=== PATIENT | female | born 1965 | race Caucasian/White ===

== ENCOUNTER 2016-06-25 14:23 | Emergency (ER) | payer MEDICAID ==
--- NOTE | 2016-06-25 16:34 | EDPHY ---
H & P Time Seen by Provider: 06/25/16 16:30 HPI/ROS: CHIEF COMPLAINT: RLQ pain. HISTORY OF PRESENT ILLNESS: The patient is a 51-year-old female with a history of chronic pain and kidney stones who presents with severe burning RLQ pain for 2 hours. The pain does not radiate. She denies vomiting, nausea, fever, dysuria , or other complaints. She reports that the pain is more severe than her usual chronic pain but is unsure if it is similar to past kidney stones. She was unable to walk earlier due to pain. REVIEW OF SYSTEMS: A complete 10-point review of systems was performed and is negative except for those items mentioned in the HPI. Past Medical/Surgical History: Kidney stones, depression, chronic pain, endometriosis, sciatica, pancreatitis, bursitis. Social History: Nonsmoker. Smoking Status: Never smoked Physical Exam: General Appearance: Alert, no distress Eyes: Pupils equal and round, no conjunctival pallor or injection ENT, Mouth: Mucous membranes moist Neck: Normal inspection Respiratory: Lungs are clear to auscultation Cardiovascular: Regular rate and rhythm Gastrointestinal: RUQ and right periumbilical tenderness. Abdomen is soft. Neurological: A&O, nonfocal, normal gait Skin: Warm and dry, no rash Extremities: Nontender, no pedal edema Psychiatric: Mood and affect normal Constitutional: Initial Vital Signs Temperature (C) 36.4 C 06/25/16 14:35 Heart Rate 69 06/25/16 14:35 Respiratory Rate 18 06/25/16 14:35 Blood Pressure 102/74 06/25/16 14:35 O2 Sat (%) 97 06/25/16 14:35 O2 Delivery Mode Room Air Allergies/Adverse Reactions: iodine [Iodine] Allergy (Verified 06/25/16 14:34) promethazine HCl [From Phenergan] Allergy (Verified 06/25/16 14:34) Home Medications: Medication Instructions Recorded Xanax 06/25/16 Medical Decision Making - Diagnostics Imaging: Study: CT of the abdomen/pelvis. Indication: RLQ pain. Results: Right renal stones, with no obstructive uropathy. The study was read by the radiologist, Dr. Linda. I viewed the images myself on the PACS system. ED Course/Re-evaluation: An IV was established and basic labs ordered including UA. 1L IV saline administered for hydration, 6mg IV Morphine for pain, and 4mg IV Zofran for nausea. Abdomen/pelvis CT ordered. CT scan results discussed with patient. She is feeling better. Etiology of right lower quadrant pain is unclear given that there is no ureteral calculus and a normal appendix is visualized. Toradol 30 mg IV given. Abdominal exam is unchanged on discharge. I feel that she is safe and stable for discharge. Abdominal pain precautions given. Differential Diagnosis: Differential diagnosis includes though it is not limited to appendicitis, cholecystitis, diverticulitis, pyelonephritis, bowel perforation, small bowel obstruction. - Data Points Laboratory Results: Laboratory Results 06/25/16 16:23 06/25/16 16:23 Medications Given: Discontinued Medications Acetaminophen/Hydrocodone Bitart ([place] 5/325mg Prepack#6) 1 btl TAKEHOME EDNOW ONE Stop: 06/25/16 19:07 Last Admin: 06/25/16 19:20 Dose: 1 btl Sodium Chloride (Ns) 1,000 mls @ 0 mls/hr IV ONCE ONE PRN Reason: Wide Open Stop: 06/25/16 16:38 Last Admin: 06/25/16 16:57 Dose: 1,000 mls Morphine Sulfate (Morphine) 6 mg IVP EDNOW ONE Stop: 06/25/16 16:38 Last Admin: 06/25/16 16:57 Dose: 6 mg Ondansetron HCl (Zofran Odt) 4 mg PO EDNOW ONE Stop: 06/25/16 16:38 Last Admin: 06/25/16 16:57 Dose: 4 mg Ondansetron HCl (Zofran Odt 4 Mg Prepack#2) 1 btl TAKEHOME EDNOW ONE Stop: 06/25/16 19:07 Last Admin: 06/25/16 19:20 Dose: 1 btl Departure - Departure Disposition: Home, Routine, Self-Care Clinical Impression: Abdominal pain Condition: Good Instructions: Acute Abdominal Pain (ED), Hydrocodone/Acetaminophen (By mouth), Ondansetron (By mouth) Additional Instructions: Follow up with your primary care provider this week for reevaluation. You have been provided the telephone number of a primary care provider if you need one. Return to the Emergency Department in 24 hours if your symptoms have not gone away or are worse in any way. Referrals: Lavon Chowdary DO [Doctor of Osteopathy] - As per Instructions (On-call PCP.) Report Scribed for: Flores Hart Report Scribed by: Marc Chew Date of Report: 06/25/16 Time of Report: 16:34 Physician Review and Approval Statement: 06/25/16 16:34 Portions of this note were transcribed by a territory sales manager medical. I personally performed a history, physical exam, medical decision making, and confirmed accuracy of information the transcribed note.
[2016-06-25] MEDS ORDERED: NS 1,000 ML IV ONE (16:37)
[2016-06-25] MEDS ORDERED: ONDANSETRON DISINTEGRATING 4 MG TAB PO ONE (16:37)
[2016-06-25 17:01] LABS: % IMMATURE GRANULYOCYTES 0.3 % (0.0-1.1); ABSOLUTE IMMATURE GRANULOCYTES 0.02 10^3/uL (0.00-0.10); ADD DIFF? NO; ADD MORPH? NO; ADD SCAN? NO; ATYPICAL LYMPHOCYTE FLAG 10 (0-99); FRAGMENT RBC FLAG 0 (0-99); HEMATOCRIT 39.3 % (38.0-47.0); HEMOGLOBIN 13.6 g/dL (12.6-16.3); LEFT SHIFT FLG 0 (0-99); LIPEMIA HEMOLYSIS FLAG 90 (0-99); MEAN CELL HEMOGLOBIN 31.3 pg (27.9-34.1); MEAN CELL HEMOGLOBIN CONCENTR. 34.6 g/dL (32.4-36.7); MEAN CELL VOLUME 90.6 fL (81.5-99.8); PLATELET CLUMPS FLAG 0 (0-99); PLATELET COUNT 209 10^3/uL (150-400); RED BLOOD CELL COUNT 4.34 10^6/uL (4.18-5.33); RED CELL DISTRIBUTION WIDTH 12.7 % (11.5-15.2)
[2016-06-25 17:16] LABS: ANION GAP 12 mEq/L (8-16); CALCIUM 9.4 mg/dL (8.5-10.4); CARBON DIOXIDE 22 mEq/l (22-31); CHLORIDE 107 mEq/L (97-110); CREATININE 0.8 mg/dL (0.6-1.0); GLOMERULAR FILTRATION RATE > 60; GLUCOSE 83 mg/dL (70-100); SODIUM 141 mEq/L (134-144)
--- NOTE | 2016-06-25 18:31 | CT ---
CT Abdomen and Pelvis Unenhanced (Renal Stone Protocol) Indication: Right flank pain. Technique: Axial unenhanced CT imaging was performed through the abdomen and pelvis, without contras t. Dose reduction techniques were utilized. Comparison: CT abdomen and pelvis August 28, 2013. Findings Abdomen: The lung bases are clear. Elongation of the right lobe of the liver is unchanged. The spleen, gallbladder, pancreas, and adren al glands are unremarkable. There are several stones in the right kidney, measuring up to 3 mm. The re is mild fullness of the right renal pelvis and proximal right ureter, without telma hydronephrosis . The left kidney has a normal unenhanced appearance. No ureteral stones are identified. Mild stool is present in the colon. The colon and small bowel are normal caliber. The appendix is n ot visible. There is no secondary evidence of appendicitis. The aorta is normal caliber. Mild degenerative change is present at L5-S1. Pelvis: No bladder or distal ureteral calcifications are identified. There is trace free fluid. Sc attered phleboliths are present. No aggressive osseous lesions are present. Impressions 1. Right renal stones, with no obstructive uropathy. 2. Additional findings, as above. Findings discussed with Dr. Flores Hart today at 1817 hours. Attention: This CT examination is specifically designed to evaluate patients who are clinically susp ected of having acute obstructive uropathy. This examination does not use radiographic contrast, and as such, provides only a limited evaluation of the abdomen, pelvis and retroperitoneum. If there is further clinical suspicion for pathological conditions other than obstructive uropathy, a complete C T evaluation of the abdomen and pelvis utilizing intravenous, oral, and rectal contrast should be con sidered.
[2016-06-25] MEDS ORDERED: HYDROCOD/APAP 5/325 PREPACK#6 BTL TAKEHOME ONE (19:06)
[2016-06-25] MEDS ORDERED: ONDANSETRON 4MG PREPACK#2 BTL TAKEHOME ONE (19:06)
[2016-06-25 19:22] VITALS: BP 133/89; PULSE 70; RESP 14; TEMP 97.9; O2SAT 94
== END 2016-06-25 19:21 | disposition home or self-care (01) ==
DX: R10.31 Right lower quadrant pain (principal)
CPT/HCPCS: 96374

== ENCOUNTER 2016-07-01 10:03 | Emergency (ER) | payer MEDICAID ==
[2016-07-01 10:16] VITALS: BP 103/80; PULSE 67; RESP 18; TEMP 98.1; O2SAT 97
--- NOTE | 2016-07-01 11:13 | EDPHY ---
H & P Stated Complaint: Bad menstrual cramps today;states "I can't walk" but is ambulatory w/o diff HPI/ROS: Chief complaint: Painful menstrual cramps History of present illness: This is a 51-year-old female who presents to the emergency department for evaluation of painful menstrual cramps. Patient reports the onset of her menstrual cycle over the last day. She states the cramps have become very painful. They are not responsive to [id number] pain medications. She states over the last few months if not years she feels like her menstrual cycle is becoming more and more painful. In addition she states she just feels worn down and achy. She denies other associated signs or symptoms: No fevers, no abdominal pain, no nausea, vomiting or diarrhea, no dysuria, hematuria or frequency, no vaginal discharge other than bleeding. Review of systems: A 10 point review of systems was obtained and other than described above was negative - Personal History LMP (Females 10-55): Now Current Tetanus Diphtheria and Acellular Pertussis (TDAP): Yes - Medical/Surgical History Hx Asthma: No Hx Chronic Respiratory Disease: No Hx Diabetes: No Hx Cardiac Disease: No Hx Renal Disease: No Hx Cirrhosis: No Hx Alcoholism: No Hx HIV/AIDS: No Hx Splenectomy or Spleen Trauma: No Other PMH: medical- kidney stones, depression, benzo od migraines, chronic pain , endometreosis, sciatica, SI, pancreatitis, bursitis - Social History Smoking Status: Never smoked - Physical Exam Exam: General Appearance: Alert, nontoxic. Eyes: Pupils equal and round no pallor or injection. ENT, Mouth: Mucous membranes moist. Respiratory: There are no retractions, lungs are clear to auscultation. Cardiovascular: Regular rate and rhythm. Gastrointestinal: Abdomen is soft and non tender, no masses, bowel sounds normal. Genitourinary: No CVA tenderness. No suprapubic tenderness. Neurological: Alert and oriented. Strength and sensation intact and symmetrical. Skin: Warm and dry, no rashes. Musculoskeletal: Neck is supple non tender. Extremities are symmetrical, full range of motion. Psychiatric: Patient is oriented X 3, there is no agitation. Constitutional: Initial Vital Signs Temperature (C) 36.7 C 07/01/16 10:13 Heart Rate 67 07/01/16 10:13 Respiratory Rate 18 07/01/16 10:13 Blood Pressure 103/80 07/01/16 10:13 O2 Sat (%) 97 07/01/16 10:13 O2 Delivery Mode Room Air Allergies/Adverse Reactions: promethazine HCl [From Phenergan] Allergy (Severe, Verified 07/01/16 10:12) tongue swells iodine [Iodine] Allergy (Intermediate, Verified 07/01/16 10:12) Hives Home Medications: Medication Instructions Recorded Xanax 06/25/16 Hydrocodone/APAP 5/325 [Parish 1 tab PO Q4 #6 tab 07/01/16 5/325 (*)] Oseltamivir Phosphate [Tamiflu 75 75 mg PO BID 5 Days 07/01/16 mg (*)] Medical Decision Making ED Course/Re-evaluation: Patient seen under the supervision of my secondary supervising physician Dr. Johnson Chino. Patient presents to the emergency department primarily for painful menstrual cramps. This has been an ongoing issue for her for a number of months if not longer. Urine is negative. She is nontoxic. She is afebrile and vital signs are stable. Patient will be discharged home. Pain management is discussed. She is asked to follow up with the primary care doctor for recheck. In addition she reports she feels achy and run down. Her boyfriend has been diagnosed as influenza A positive, this is likely the cause. She will be prescribed Tamiflu. Home care is discussed. Strict return precautions are given. Patient voiced understanding and agreement with plan. Differential Diagnosis: Included but not limited to painful menstrual cycle, dysfunctional uterine bleeding, with associated complications - Data Points Medications Given: Discontinued Medications Ketorolac Tromethamine (Toradol) 30 mg IM EDNOW ONE Stop: 07/01/16 11:23 Last Admin: 07/01/16 11:26 Dose: 30 mg Departure - Departure Disposition: Home, Routine, Self-Care Clinical Impression: Menstrual cramp Condition: Good Instructions: Pelvic Pain in Women (ED), Influenza (ED) Additional Instructions: Follow-up with a primary care doctor and OBGYN for continued evaluation and care In regards to pain control see the following: Use ibuprofen [600] mg [3] times a day for the next 2-3 days for pain In addition You have been prescribed [Parish] for pain. [Parish] contains Tylenol, do not take extra Tylenol/acetaminophen/Apap with it. It is sedating. If symptoms worsen or new symptoms develop return to the emergency department for recheck Referrals: NONE *PRIMARY CARE P,. [Primary Care Provider] - As per Instructions Prescriptions: Hydrocodone/APAP 5/325 [Parish 5/325 (*)] 1 tab PO Q4 #6 tab Oseltamivir Phosphate [Tamiflu 75 mg (*)] 75 mg PO BID 5 Days
[2016-07-01] MEDS ORDERED: KETOROLAC 30 MG/1 ML SDV IM ONE (11:22)
== END 2016-07-01 11:27 | disposition home or self-care (01) ==
DX: N94.6 Dysmenorrhea, unspecified (principal)
CPT/HCPCS: J1885

== ENCOUNTER 2016-07-11 09:03 | Emergency (ER) | payer MEDICAID ==
[2016-07-11] MEDS ORDERED: HYDROmorphONE/DILAUDID 1 MG/ML SYR IVP ONE (09:38)
[2016-07-11] MEDS ORDERED: NS 1,000 ML IV ONE (09:38)
[2016-07-11] MEDS ORDERED: ONDANSETRON 4 MG/2 ML VIAL IVP ONE (09:38)
--- NOTE | 2016-07-11 09:41 | EDPHY ---
H & P Stated Complaint: Frequent and painful urination. Time Seen by Provider: 07/11/16 09:20 HPI/ROS: CHIEF COMPLAINT: Dysuria HISTORY OF PRESENT ILLNESS: The patient is a 51-year-old female who comes to the emergency department complaining of dysuria, burning and right lower quadrant pain and some right flank pain. She has been here several times in the past for the same. 2 weeks ago she had a CT scan that showed several kidney stones but no ureteral stones. Her urinalysis is unremarkable. She states that her symptoms have continued to worsen however especially over the last 2 days. She has not had a fever. No vomiting. No bleeding. No diarrhea. REVIEW OF SYSTEMS: Constitutional: denies: chills, fever, recent illness, recent injury EENTM: denies: blurred vision, double vision, nose congestion Respiratory: denies: cough, shortness of breath Cardiac: denies: chest pain, irregular heart rate, lightheadedness, palpitations Gastrointestinal/Abdominal: denies: See HPI Genitourinary: See HPI Musculoskeletal: denies: joint pain, muscle pain Skin: denies: lesions, rash, jaundice, bruising Neurological: denies: headache, numbness, paresthesia, tingling, dizziness, weakness Hematologic/Lymphatic: denies: blood clots, easy bleeding, easy bruising Immunologic/allergic: denies: HIV/AIDS, transplant EXAM: GENERAL: Well-appearing, well-nourished and in no acute distress. HEAD: Atraumatic, normocephalic. EYES: Pupils equal round and reactive to light, extraocular movements intact, sclera anicteric, conjunctiva are normal. ENT: TMs normal, nares patent, oropharynx clear without exudates. Moist mucous membranes. NECK: Normal range of motion, supple without lymphadenopathy or JVD. LUNGS: Breath sounds clear to auscultation bilaterally and equal. No wheezes rales or rhonchi. HEART: Regular rate and rhythm without murmurs, rubs or gallops. ABDOMEN: bilateral lower quadrant pain right worse than left, no tenderness, mild right flank pain tenderness, no swelling or deformity BACK: No CVA tenderness, no spinal tenderness, step-offs or deformities EXTREMITIES: Normal range of motion, no pitting or edema. No clubbing or cyanosis. NEUROLOGICAL: Cranial nerves II through XII grossly intact. Normal speech, normal gait. 5/5 strength, normal movement in all extremities, normal sensation PSYCH: Normal mood, normal affect. SKIN: Warm, dry, normal turgor, no visible rashes or lesions. Source: Patient, Old records Exam Limitations: No limitations - Personal History LMP (Females 10-55): 8-14 Days Ago Current Tetanus Diphtheria and Acellular Pertussis (TDAP): Unsure - Medical/Surgical History Hx Asthma: No Hx Chronic Respiratory Disease: No Hx Diabetes: No Hx Cardiac Disease: No Hx Renal Disease: No Hx Cirrhosis: No Hx Alcoholism: No Hx HIV/AIDS: No Hx Splenectomy or Spleen Trauma: No Other PMH: medical- kidney stones, benzo od migraines, chronic pain, endometreosis, sciatica, SI, pancreatitis, bursitis - Family History Significant Family History: No pertinent family hx - Social History Smoking Status: Never smoked Alcohol Use: Sober Drug Use: None Constitutional: Initial Vital Signs Temperature (C) 36.7 C 07/11/16 09:06 Heart Rate 67 07/11/16 09:06 Respiratory Rate 16 07/11/16 09:06 Blood Pressure 96/75 L 07/11/16 09:06 O2 Sat (%) 98 07/11/16 09:06 O2 Delivery Mode Room Air O2 (L/minute) 2 Allergies/Adverse Reactions: promethazine HCl [From Phenergan] Allergy (Severe, Verified 07/01/16 10:12) tongue swells iodine [Iodine] Allergy (Intermediate, Verified 07/01/16 10:12) Hives Home Medications: Medication Instructions Recorded Xanax 06/25/16 Cephalexin [Keflex] 500 mg PO TID #21 cap 07/11/16 Phenazopyridine HCl [Pyridium] 200 mg PO TID #6 tab 07/11/16 Medical Decision Making - Diagnostics Imaging: Study: Ultrasound of the: Abdomen and pelvis Indication: Right lower quadrant pain and dysuria Results: US scan of the abdomen and pelvis was obtained. The results of the study are negative for ovarian cyst or torsion, kidney stones visible but no hydro, partial view of appendix normal, no secondary signs of infection or inflammation . The study was read by the radiologist, Dr. Mike Linda. I viewed the images myself on the PACS system. ED Course/Re-evaluation: We discussed the lab and ultrasound results. The patient is relieved. She is feeling much better. I will start her on Keflex and Pyridium for urinary tract infection. She is agreeable with this plan. She declines further workup or testing at this time. Patient has nursing staff she can have a prescription for narcotics. I declined this because of her history of narcotic abuse. Patient was evidently angry about this and called to speak with case management. Differential Diagnosis: Partial list of the Differential diagnosis considered include but were not limited to; urinary tract infection, kidney stone, ovarian cyst, ovarian torsion, appendicitis and although unlikely based on the history and physical exam, I also considered diverticulitis, ischemia, volvulus. I discussed these differential diagnoses and the plan with the patient as well as the usual and expected course. The patient understands that the diagnosis is provisional and that in medicine we are not always correct and that further workup is often warranted. Usual and customary warnings were given. All of the patient's questions were answered. The patient was instructed to return to the emergency department should the symptoms at all worsen or return, otherwise to followup with the physician as we discussed. - Data Points Laboratory Results: Laboratory Results 07/11/16 09:44 07/11/16 09:44 07/11/16 07/11/16 09:44 09:10 WBC 6.33 10^3/uL (3.80-9.50) RBC 4.26 10^6/uL (4.18-5.33) Hgb 13.5 g/dL (12.6-16.3) Hct 39.2 % (38.0-47.0) MCV 92.0 fL (81.5-99.8) MCH 31.7 pg (27.9-34.1) MCHC 34.4 g/dL (32.4-36.7) RDW 12.7 % (11.5-15.2) Plt Count 216 10^3/uL (150-400) MPV 10.2 fL (8.7-11.7) Neut % (Auto) 54.6 % (39.3-74.2) Lymph % (Auto) 35.5 % (15.0-45.0) Mower % (Auto) 7.0 % (4.5-13.0) Eos % (Auto) 1.9 % (0.6-7.6) Baso % (Auto) 0.8 % (0.3-1.7) Nucleat RBC Rel Count 0.0 % (0.0-0.2) Absolute Neuts (auto) 3.46 10^3/uL (1.70-6.50) Absolute Lymphs (auto) 2.25 10^3/uL (1.00-3.00) Absolute Monos (auto) 0.44 10^3/uL (0.30-0.80) Absolute Eos (auto) 0.12 10^3/uL (0.03-0.40) Absolute Basos (auto) 0.05 10^3/uL (0.02-0.10) Absolute Nucleated RBC 0.00 10^3/uL (0-0.01) Immature Gran % 0.2 % (0.0-1.1) Immature Gran # 0.01 10^3/uL (0.00-0.10) Sodium 143 mEq/L (134-144) Potassium 3.8 mEq/L (3.5-5.2) Chloride 110 mEq/L (97-110) Carbon Dioxide 22 mEq/l (22-31) Anion Gap 11 mEq/L (8-16) BUN 10 mg/dL (7-23) Creatinine 0.7 mg/dL (0.6-1.0) Estimated GFR > 60 Glucose 88 mg/dL (70-100) Calcium 9.4 mg/dL (8.5-10.4) Total Bilirubin 0.8 mg/dL (0.1-1.4) Conjugated Bilirubin 0.2 mg/dL (0.0-0.5) Unconjugated Bilirubin 0.6 mg/dL (0.0-1.1) AST 26 IU/L (14-46) ALT 31 IU/L (9-52) Alkaline Phosphatase 68 IU/L (38-126) Total Protein 7.2 g/dL (6.3-8.2) Albumin 4.2 g/dL (3.5-5.0) Lipase 124.0 IU/L (23-300) Beta HCG, Qual NEGATIVE Urine Color YELLOW Urine Appearance CLEAR Urine pH 5.0 (5.0-7.5) Ur Specific [place] 1.010 (1.002-1.030) Urine Protein NEGATIVE (NEGATIVE) Urine Ketones NEGATIVE (NEGATIVE) Urine Blood NEGATIVE (NEGATIVE) Urine Nitrate NEGATIVE (NEGATIVE) Urine Bilirubin NEGATIVE (NEGATIVE) Urine Urobilinogen NEGATIVE EU (0.2-1.0) Ur Leukocyte Esterase 1+ H (NEGATIVE) Urine RBC 1-3 /hpf (0-3) Urine WBC 1-3 /hpf (0-3) Ur Epithelial Cells TRACE /lpf (NONE-1+) Urine Bacteria TRACE H /hpf (NONE SEEN) Urine Mucus TRACE /lpf (NONE-1+) Ur Culture Indicated? INDICATED H (NI) Urine Glucose NEGATIVE (NEGATIVE) Medications Given: Discontinued Medications Cephalexin HCl (Keflex) 500 mg PO EDNOW ONE PRN Reason: Protocol Stop: 07/11/16 11:43 Last Admin: 07/11/16 12:00 Dose: 500 mg Hydromorphone HCl (Dilaudid) 1 mg IVP EDNOW ONE Stop: 07/11/16 09:39 Last Admin: 07/11/16 10:19 Dose: 1 mg Sodium Chloride (Ns) 1,000 mls @ 0 mls/hr IV ONCE ONE PRN Reason: Wide Open Stop: 07/11/16 09:39 Last Admin: 07/11/16 10:19 Dose: 1,000 mls Ondansetron HCl (Zofran) 4 mg IVP EDNOW ONE Stop: 07/11/16 09:39 Last Admin: 07/11/16 10:19 Dose: 4 mg Phenazopyridine HCl (Pyridium) 200 mg PO EDNOW ONE Stop: 07/11/16 11:43 Last Admin: 07/11/16 12:00 Dose: 200 mg Departure - Departure Disposition: Home, Routine, Self-Care Clinical Impression: Urinary tract infection Qualifiers: Qualifier Code: (N30.00) Acute cystitis without hematuria Condition: Fair Instructions: Urinary Tract Infection in Women (ED) Referrals: Maria C Mosquera MD [Medical Doctor] - As per Instructions NONE *PRIMARY CARE P,. [Primary Care Provider] - As per Instructions Prescriptions: Cephalexin [Keflex] 500 mg PO TID #21 cap Phenazopyridine HCl [Pyridium] 200 mg PO TID #6 tab
[2016-07-11 09:47] LABS: COLOR YELLOW; LEUKOCYTE ESTERASE,URINE 1+ (NEGATIVE); NITRITE,URINE NEGATIVE (NEGATIVE)
[2016-07-11 09:50] LABS: BACTERIA TRACE /hpf (NONE SEEN); MUCUS TRACE /lpf (NONE-1+)
[2016-07-11 09:59] LABS: % IMMATURE GRANULYOCYTES 0.2 % (0.0-1.1); ABSOLUTE IMMATURE GRANULOCYTES 0.01 10^3/uL (0.00-0.10); ADD DIFF? NO; ADD MORPH? NO; ADD SCAN? NO; ATYPICAL LYMPHOCYTE FLAG 10 (0-99); FRAGMENT RBC FLAG 0 (0-99); HEMATOCRIT 39.2 % (38.0-47.0); HEMOGLOBIN 13.5 g/dL (12.6-16.3); LEFT SHIFT FLG 0 (0-99); LIPEMIA HEMOLYSIS FLAG 90 (0-99); MEAN CELL HEMOGLOBIN 31.7 pg (27.9-34.1); MEAN CELL HEMOGLOBIN CONCENTR. 34.4 g/dL (32.4-36.7); MEAN PLATELET VOLUME 10.2 fL (8.7-11.7); PLATELET CLUMPS FLAG 30 (0-99); PLATELET COUNT 216 10^3/uL (150-400); RED BLOOD CELL COUNT 4.26 10^6/uL (4.18-5.33); RED CELL DISTRIBUTION WIDTH 12.7 % (11.5-15.2)
[2016-07-11 10:28] LABS: ALANINE AMINOTRANSFERASE 31 IU/L (9-52); ALBUMIN 4.2 g/dL (3.5-5.0); ALKALINE PHOSPHATASE 68 IU/L (38-126); ANION GAP 11 mEq/L (8-16); ASPARTATE AMINOTRANSFERASE 26 IU/L (14-46); BILIRUBIN,TOTAL 0.8 mg/dL (0.1-1.4); BILIRUBIN-CONJUGATED 0.2 mg/dL (0.0-0.5); BILIRUBIN-UNCONJUGATED 0.6 mg/dL (0.0-1.1); CALCIUM 9.4 mg/dL (8.5-10.4); CARBON DIOXIDE 22 mEq/l (22-31); CHLORIDE 110 mEq/L (97-110); CREATININE 0.7 mg/dL (0.6-1.0); GLOMERULAR FILTRATION RATE > 60; GLUCOSE 88 mg/dL (70-100); POTASSIUM 3.8 mEq/L (3.5-5.2); SODIUM 143 mEq/L (134-144); TOTAL PROTEIN 7.2 g/dL (6.3-8.2)
--- NOTE | 2016-07-11 11:34 | US ---
Transabdominal and Transvaginal Pelvic Ultrasound History: 51-year-old with right lower quadrant pain, LMP June 28, 2016. Comparison: CT abdomen and pelvis June 25, 2016. Findings: Transabdominal: The uterus measures 7.8 x 4.2 x 4.4 cm. The bladder is normal. Transvaginal: No fibroids are present. The endometrium is homogeneous and measures 2 mm. The left ova ry measures 2.4 x 1.2 x 1.4 cm. The right ovary measures 2.8 x 1.2 x 1.4 cm. Punctate echogenic foci in the ovaries suggest calcifications. No adnexal masses are identified. Normal arterial blood flow i s documented to both ovaries by Doppler ultrasound. There is no free fluid. Impression: No acute findings in the pelvis. Findings discussed with Dr. Hamilton Ivory on July 11, 2016 at 1131 hours.
--- NOTE | 2016-07-11 11:34 | US ---
Appendiceal Ultrasound History: Right lower quadrant pain. Comparison: None available. Technique: Limited ultrasound of the right lower quadrant was performed. Findings: A tubular structure suggesting the appendix is normal caliber in its visualized extent, matthew suring 4 mm, however, incompletely visualized throughout its length. There is no free fluid. Impression: Incompletely visualized appendix with normal appearance of the visualized portions of th e appendix. Findings discussed with Dr. Hamilton Ivory on July 11, 2016 at 1131 hours.
--- NOTE | 2016-07-11 11:37 | US ---
Complete Retroperitoneal Ultrasound History: Right flank pain. Comparison: CT abdomen and pelvis June 25, 2016. Findings: The right kidney measures 10.3 x 3.5 x 4.2 cm and the left kidney measures 10.3 x 4.2 x 4.4 cm. An echogenic structure in the mid right kidney likely corresponds to a 3 mm stone seen on CT, be tter visualized on CT and ultrasound. The kidneys have normal echotexture, cortical thickness, and co ntour without pelvocaliectasis. The bladder is normal. Bilateral ureteral jets are present. Prevoid bladder volume is 51 mL. Postvo id bladder volume is 0 mL. Impression: Nonobstructing right nephrolithiasis. Findings discussed with Dr. Hamilton Ivory on July 11, 2016 at 1131 hours.
[2016-07-11] MEDS ORDERED: CEPHALEXIN 500 MG CAP PO ONE (11:42)
[2016-07-11] MEDS ORDERED: PHENAZOPYRIDINE HCL 200 MG TAB PO ONE (11:42)
[2016-07-11 12:02] VITALS: BP 105/75; PULSE 61; RESP 18; TEMP 97.7; O2SAT 100
== END 2016-07-11 12:03 | disposition home or self-care (01) ==
DX: N30.00 Acute cystitis without hematuria (principal); B95.1 Streptococcus, group B, as the cause of diseases classified elsewhere
CPT/HCPCS: 96374; J1170; J2405

== ENCOUNTER → 2016-08-22 | Outpatient (CLI) | payer MEDICAID | LOC: FIMAGING 13:51 | PROVIDERS: ATTEND Nurse Practitioner | DX: M25.551 Pain in right hip (principal); M25.552 Pain in left hip ==

== ENCOUNTER 2017-07-25 11:53 | Emergency (ER) | payer MEDICAID ==
[2017-07-25 11:59] VITALS: O2SAT 97
--- NOTE | 2017-07-25 12:50 | EDPHY ---
H & P Stated Complaint: slipped on ice er/twisted low back Time Seen by Provider: 07/25/17 12:33 HPI/ROS: CHIEF COMPLAINT: Low back pain HISTORY OF PRESENT ILLNESS: The patient presents to the ED with complaints of left paraspinal lumbar muscular pain following a twisting injury that occurred yesterday. The patient denies any acute numbness, weakness, midline pain, bowel /bladder dysfunction or history of fever. The patient denies additional traumatic injury. The patient does have a history of chronic pain and reportedly is not currently under the care of a primary care provider. The patient denies any recent narcotic use. The patient denies any additional complaints. REVIEW OF SYSTEMS: A comprehensive 10 point review of systems is otherwise negative aside from elements mentioned in the history of present illness. Source: Patient Exam Limitations: No limitations - Personal History LMP (Females 10-55): 1-7 Days Ago Current Tetanus/Diphtheria Vaccine: Yes - Medical/Surgical History Hx Asthma: No Hx Chronic Respiratory Disease: No Hx Diabetes: No Hx Cardiac Disease: No Hx Renal Disease: No Hx Cirrhosis: No Hx Alcoholism: No Hx HIV/AIDS: No Hx Splenectomy or Spleen Trauma: No Other PMH: medical- kidney stones, benzo od migraines, chronic pain, endometreosis, sciatica, SI, pancreatitis, bursitis - Social History Smoking Status: Never smoked - Physical Exam Exam: General Appearance: Alert, no distress Head: Atraumatic Eyes: Pupils equal, round, reactive ENT, Mouth: No hemotympanum, no oral trauma Neck: Nontender, trachea midline Respiratory: No chest wall tender, subcutaneous air, lungs clear bilaterally Cardiovascular: Regular rate and rhythm Abdomen: Abdomen is soft and nontender, pelvis stable Skin: No lacerations, No abrasion Back: No midline T/L/S pain, tenderness to palpation at the insertion of the left paraspinal muscle on the pelvis Extremities: Nontender, full range of motion Neurological: A&Ox3, normal motor function, normal sensory exam Constitutional: Initial Vital Signs Temperature (C) 36.3 C 07/25/17 11:56 Heart Rate 64 07/25/17 11:56 Respiratory Rate 18 07/25/17 11:56 Blood Pressure 107/82 H 07/25/17 11:56 O2 Sat (%) 97 07/25/17 11:56 O2 Delivery Mode Room Air Allergies/Adverse Reactions: promethazine HCl [From Phenergan] Allergy (Severe, Verified 07/01/16 10:12) tongue swells iodine [Iodine] Allergy (Intermediate, Verified 07/01/16 10:12) Hives Home Medications: Medication Instructions Recorded Diclofenac Sodium [Voltaren 75 MG 75 mg PO BID PRN #40 tab 07/25/17 (*)] Lidocaine [Lidoderm] 1 each TP DAILY PRN #15 patch 07/25/17 Medical Decision Making ED Course/Re-evaluation: The patient presents the ED with a muscular strain involving the paraspinal muscles. She is in no acute distress at this point time. She is neurologically intact. The patient will be given a prescription for diclofenac and lidocaine patches. The patient is given the contact number of our on-call primary care provider. She has no red flag warnings for low back pain. She has nothing to suggest a spinal cord injury or vertebral fracture clinically. Differential Diagnosis: Differential diagnosis considered includes myofascial strain, vertebral fracture , sciatic Departure - Departure Disposition: Home, Routine, Self-Care Clinical Impression: Acute lumbar myofascial strain Condition: Good Instructions: Low Back Strain (ED) Additional Instructions: 1. Lidocaine patches and diclofenac as prescribed. 2. Please schedule a follow-up appointment with primary care. You have been given the number of our on-call primary care provider. Referrals: Tamar Simmons DO [Doctor of Osteopathy] - As per Instructions
[2017-07-25 13:38] VITALS: BP 115/76; PULSE 67; RESP 20; TEMP 98.1
== END 2017-07-25 13:38 | disposition home or self-care (01) ==
DX: S39.012A Strain of muscle, fascia and tendon of lower back, initial encounter (principal); X58.XXXA Exposure to other specified factors, initial encounter

== ENCOUNTER 2017-09-17 20:00 | Emergency (ER) | payer MEDICAID ==
[2017-09-17 20:07] VITALS: BP 114/78
--- NOTE | 2017-09-17 20:30 | EDPHY ---
H & P Stated Complaint: generalized pain, back pain is the worst Source: Patient Exam Limitations: No limitations - Personal History LMP (Females 10-55): Over 28 Days Ago Current Tetanus/Diphtheria Vaccine: Yes Current Tetanus Diphtheria and Acellular Pertussis (TDAP): Yes - Medical/Surgical History Hx Asthma: No Hx Chronic Respiratory Disease: No Hx Diabetes: No Hx Cardiac Disease: No Hx Renal Disease: No Hx Cirrhosis: No Hx Alcoholism: No Hx HIV/AIDS: No Hx Splenectomy or Spleen Trauma: No Other PMH: medical- kidney stones, benzo od migraines, chronic pain, pelvic inflammatory disease, sciatica, SI, acute pancreatitis, bursitis - Social History Smoking Status: Never smoked Time Seen by Provider: 09/17/17 20:29 HPI/ROS: HPI: This is a 52-year-old female who presents with Chief Complaint: generalized pain, back pain is the worst Location: Lower back Quality: Sharp pain Duration: 30 min to 1 hr prior to arrival Signs and Symptoms: No bleeding,+ radiation, no numbness, no weakness, no tingling, no incontinence, + decreased range of motion, no swelling, + pain, no fever Timing: Acute on chronic Severity: 12/10 Context: Patient presents with acute on chronic bilateral lumbar sharp pain that started while walking approximately 30 min to 1 hr prior to arrival. Patient reports that radiates down the left hip. Denies any fever/urinary symptoms/weakness. She reports that flexion and extension increase her pain. She believes that she is having a muscle spasm. She is currently in between primary care providers between [facility] in [place]. She also complains of an injury to her right elbow approximately 3 months ago. She reports that the swelling has decreased but the pain is intermittent in nature. She is right- hand dominant. Denies LOC/head injury/neck pain/dizziness/nausea/vomiting/ amnesia. LMP over 28 days ago. Modifying Factors: None Comment: ROS: see HPI Constitutional: No fever, no chills, no weight loss Eyes: No blurred vision Respiratory: No shortness of breath, no cough Cardiovascular: No chest pain Gastrointestinal: No nausea, no vomiting no diarrhea Genitourinary: No dysuria Extremities: No myalgias Neurologic: No weakness, no numbness Skin: No rashes Hematologic: No bruising, no bleeding MEDICAL/SURGICAL/SOCIAL HISTORY: Medical history: kidney stones, benzo overdose; migraines, chronic pain, pelvic inflammatory disease, sciatica, SI, acute pancreatitis, bursitis Surgical history: Denies Social history: Employed. Currently no PCP. Family history noncontributory. CONSTITUTIONAL: Extremely well-appearing adult female, awake and alert, no obvious distress HEENT: Atraumatic and normocephalic. NECK: supple, no midline tenderness, flexion 45 degrees, extension 45 degrees, right and left lateral flexion 45 degrees. No meningismus. Cardiovascular: Normal S1/S2, regular rate, regular rhythm, without murmur rub or gallop. PULMONARY/CHEST: Symmetrical and nontender. no crepitus. Clear to auscultation bilaterally. Good air movement. No accessory muscle usage. ABDOMEN: Soft, nondistended, nontender, no ecchymosis. PELVIC: no pain with rocking; bilateral hips flexion 125 degrees, extension 30 degrees, with no pain internal rotation and no pain external rotation. BACK: Bilateral lower nonspecific paraspinous reproducible tenderness in multiple area at multiple levels; No midline tenderness, no paraspinous spasm, deep tendon reflexes 2/2, no pain with straight leg raise, No foot drop. Achilles reflexes are equal bilaterally. Able to walk on heels and toes without difficulty. EXTREMITIES: 2/2 pulses, strength 5/5, ELBOW: Full extension to 180, flexion to 150, moderate tenderness over medial epicondyle, moderate tenderness over lateral epicondyle, no effusion. DIP/PIP/MCP flexion/extension intact with good light touch sensation. no deformities, no clubbing, no cyanosis or edema. NEUROLOGICAL: no focal neuro deficits. GCS 15. Light touch sensation intact. SKIN: Warm and dry, no erythema. no rash. Good capillary refill. (Veena,Terra) Constitutional: Initial Vital Signs Temperature (C) 36.5 C 09/17/17 20:01 Heart Rate 72 09/17/17 20:01 Respiratory Rate 16 09/17/17 20:01 Blood Pressure 114/78 09/17/17 20:01 O2 Sat (%) 97 09/17/17 20:01 O2 Delivery Mode Room Air Allergies/Adverse Reactions: promethazine HCl [From Phenergan] Allergy (Severe, Verified 09/17/17 20:07) tongue swells iodine [Iodine] Allergy (Intermediate, Verified 09/17/17 20:07) Hives Home Medications: Medication Instructions Recorded Lidocaine [Lidoderm] 1 each TP Q12 PRN #6 adh..patch 09/17/17 Metaxalone [Skelaxin] 800 mg PO Q8 PRN #6 tablet 09/17/17 Medical Decision Making ED Course/Re-evaluation: Lumbosacral x-ray, right elbow x-ray, Lidoderm patch, IM Toradol and p.o. Decadron given Lumbosacral x-ray my read shows no fracture; significant degenerative changes. Shows moderate stool burden. Showed patient x-rays at bedside. No signs of neurovascular compromise/tenting of skin/compartment syndrome/ extremities and joints examined above and below area of concern and are neurovascularly intact/cauda equina syndrome/saddle anesthesia. Ambulating without any difficulty. reports pain greatly improved. Patient politely declined Miralax as "it doesn't work." abdomen soft and nontender. doubt surgical abdomen. Mag citrate given to patient to take home at discharge, patient reports that flxeril does not work for her and is requesting another muscle relaxer. Rx Skelaxin and Lidoderm patch given. This patient was seen under the supervision of my secondary supervising physician. I evaluated care for this patient independently. (Hannah Curiel) I did not see this patient while she was in the emergency department. However her care was discussed with the PA while the patient was in the department. I agree with treatment plan and management (Héctor Freitas) Differential Diagnosis: Back pain including but not limited to muscular pain, herniated disc, spine fracture, intra-abdominal causes and urinary tract infection. (Hannah Curiel) - Data Points Medications Given: Discontinued Medications Dexamethasone (Decadron) 8 mg PO EDNOW ONE Stop: 09/17/17 20:36 Last Admin: 09/17/17 21:03 Dose: 8 mg Ketorolac Tromethamine (Toradol) 30 mg IM EDNOW ONE Stop: 09/17/17 20:36 Last Admin: 09/17/17 21:03 Dose: Not Given Magnesium Citrate (Magnesium Citrate) 300 ml PO ONCE ONE Stop: 09/17/17 21:26 Last Admin: 09/17/17 21:32 Dose: 1 btl Miscellaneous Medication (Icy Hot Lidocaine/Menthol 4%/1% Patch) 1 patch TD EDNOW ONE Stop: 09/17/17 20:36 Last Admin: 09/17/17 21:03 Dose: 1 patch Departure - Departure Disposition: Home, Routine, Self-Care Clinical Impression: Pain in lower back Qualifiers: Chronicity: acute Back pain laterality: bilateral Sciatica presence: without sciatica Qualified Code(s): M54.5 - Low back pain Constipation Qualifiers: Constipation type: unspecified constipation type Qualified Code(s): K59.00 - Constipation, unspecified Condition: Good Instructions: Magnesium Citrate (By mouth), Constipation (ED), Low Back Strain (ED) Additional Instructions: Drink 150 mL magnesium citrate with 8 oz of liquids preferably Gatorade. If no bowel movement within 4 hr; drink the other 150 M mL with 8 oz of liquids. Please eat a diet high in fiber with plenty of fruits and vegetables. Consume a minimum of 8-10 glasses of water or electrolyte fluid replacement drinks that include Gatorade, Powerade, Pedialyte. Return to the ER immediately if you have new or worsening back pain, fevers/ chills, flu like symptoms, incontinence or inability to urinate or defecate, weakness, paralysis, or any other symptom that concerns you Referrals: [facility],. [Clinic] - 3-4 days, if not improved Prescriptions: Lidocaine [Lidoderm] 1 each TP Q12 PRN #6 adh..patch PRN Reason: Pain, Moderate Metaxalone [Skelaxin] 800 mg PO Q8 PRN #6 tablet PRN Reason: Spasms
[2017-09-17] MEDS ORDERED: KETOROLAC 30 MG/1 ML SDV IM ONE (20:35)
[2017-09-17] MEDS ORDERED: DEXAMETHASONE 4 MG TAB PO ONE (20:35)
[2017-09-17] MEDS ORDERED: LIDOCAINE 4%/MENTHOL 1% PATCH TD ONE (20:35)
[2017-09-17] MEDS ORDERED: PATCH REMOVAL 1 EA PATCH TD SCH (21:00)
[2017-09-17] MEDS ORDERED: MAGNESIUM CITRATE 300 ML BOTTLE PO ONE (21:25)
== END 2017-09-17 21:39 | disposition home or self-care (01) ==
DX: M54.5 Low back pain (principal); K59.00 Constipation, unspecified
CPT/HCPCS: J1885

== ENCOUNTER 2017-12-02 09:34 | Emergency (ER) | payer MEDICAID ==
--- NOTE | 2017-12-02 09:43 | EDPHY ---
H & P Stated Complaint: chronic pain patient /nontraumatic r shoulder pain Time Seen by Provider: 12/02/17 09:42 HPI/ROS: HPI: This is a 52-year-old female who presents with Chief Complaint: chronic pain patient /nontraumatic r shoulder pain Location: Right shoulder Quality: Pain Duration: Months Signs and Symptoms: No bleeding, + radiation, no numbness, no weakness, no tingling, no incontinence, + decreased range of motion, no swelling, + pain, no fever Timing: chronic Severity: 01/10 Context: Patient is right-hand dominant, presents with complaints every injuring her shoulder yesterday helping her friend lift up cooler felt with ice. She reports that as she lifted the cooler up doors heart level and externally rotated her shoulder she felt a pulling sensation in the anterior lateral part of her shoulder. She describes the pain as constant, moderate, with radiation down into her elbow and anteriorly on her bicep. Patient reports that she had a possible rotator cuff injury several years ago. She is followed by [facility]. Denies any numbness, tingling, skin color changes. Patient has no history of gout. Modifying Factors: She has not tried [id number] Tylenol or ibuprofen Comment: ROS: see HPI Constitutional: No fever, no chills, no weight loss Eyes: No blurred vision Respiratory: No shortness of breath, no cough Cardiovascular: No chest pain Gastrointestinal: No nausea, no vomiting no diarrhea Genitourinary: No dysuria Extremities: No myalgias Neurologic: No weakness, no numbness Skin: No rashes Hematologic: No bruising, no bleeding MEDICAL/SURGICAL/SOCIAL HISTORY: Medical history: kidney stones, benzo od, migraines, chronic pain, pelvic inflammatory disease, sciatica, SI, acute pancreatitis, bursitis Surgical history: Denies Social history: Unemployed. Single. CONSTITUTIONAL: Extremely well-appearing middle-aged white female, awake and alert, no obvious distress HEENT: Atraumatic and normocephalic. EXTREMITIES: 2/2 radial pulses, deltoid strength 5/5, right SHOULDER: Arc test abduction decreased to 120, abduction to 45, horizontal flexion decreased 100, horizontal extension to 30, mild pain with Neer test/Bautista test (impingement). Moderate Tenderness to palpation over AC joint. DIP/PIP/ MCP flexion/extension intact with good light touch sensation. no deformities, no clubbing, no cyanosis or edema. NEUROLOGICAL: no focal neuro deficits. GCS 15. Light touch sensation intact. SKIN: Warm and dry, no erythema. no rash. Good capillary refill. Source: Patient Exam Limitations: No limitations - Personal History LMP (Females 10-55): Over 28 Days Ago Current Tetanus Diphtheria and Acellular Pertussis (TDAP): Yes - Medical/Surgical History Hx Asthma: No Hx Chronic Respiratory Disease: No Hx Diabetes: No Hx Cardiac Disease: No Hx Renal Disease: No Hx Cirrhosis: No Hx Alcoholism: No Hx HIV/AIDS: No Hx Splenectomy or Spleen Trauma: No Other PMH: medical- kidney stones, benzo od migraines, chronic pain, pelvic inflammatory disease, sciatica, SI, acute pancreatitis, bursitis - Social History Smoking Status: Never smoked Constitutional: Initial Vital Signs Temperature (C) 36.4 C 12/02/17 09:38 Heart Rate 62 12/02/17 09:38 Respiratory Rate 16 12/02/17 09:38 Blood Pressure 105/63 12/02/17 09:38 O2 Sat (%) 96 12/02/17 09:38 O2 Delivery Mode Room Air Allergies/Adverse Reactions: promethazine HCl [From Phenergan] Allergy (Severe, Verified 12/02/17 09:37) tongue swells iodine [Iodine] Allergy (Intermediate, Verified 12/02/17 09:37) Hives Home Medications: Medication Instructions Recorded NK [No Known Home Meds] 12/02/17 Medical Decision Making - Diagnostics Imaging Results: Imaging Impressions Shoulder X-Ray 12/02/17 09:50 Impression: No source for pain identified. Procedures: Procedure: Splint placement. A right sling was applied by the Emergency Room eeg technician. After application of the splint I returned and re-examined the patient. The splint was adequately immobilizing the joint and distal to the splint the patient's circulation and sensation was intact. ED Course/Re-evaluation: No signs of neurovascular compromise/tenting of skin/compartment syndrome/ extremities and joints examined above and below area of concern and are neurovascularly intact. Advised the patient that we will not prescribe pain medication for her as she is under pain management. I did give her Percocet x1 in the ER. Placed in sling for comfort. X-ray my read shows mild degenerative changes; no fracture, no AC joint separation, no calcifications seen. I suspect that patient has a bursitis versus impingement syndrome. I will refer her back to pain management as she would benefit from intra-articular steroid injection. This patient was seen under the supervision of my secondary supervising physician. I evaluated care for this patient independently. Discussed this patient with Dr. Chino who did not see the patient. Differential Diagnosis: Differential diagnosis includes but is not limited to labral tear, rotator cuff injury, bursitis, impingement syndrome, adhesive capsulitis. - Data Points Medications Given: Discontinued Medications Oxycodone/Acetaminophen (Percocet 5/325) 1 tab PO EDNOW ONE Stop: 12/02/17 09:52 Last Admin: 12/02/17 10:02 Dose: 1 tab Departure - Departure Disposition: Home, Routine, Self-Care Clinical Impression: Impingement syndrome of right shoulder region Condition: Good Instructions: Shoulder Bursitis (ED), Shoulder Sprain (ED) Additional Instructions: Wear the sling for comfort while out of bed. She not use for more than 1 week. Take Tylenol 650 mg every 4 hours and/or Ibuprofen 600 mg every 8 hours with food as needed for pain. Follow up with Pain Management in 1-2 weeks at which time they will evaluate and recommend with you if conservative management versus further adjuvant therapy is indicated. Return to the ER immediately if you experience new or worsening pain, discoloration, numbness, tingling, or any other symptoms that concern you. Referrals: [facility] [Provider Group] - As per Instructions
[2017-12-02] MEDS ORDERED: OXYCODONE/APAP 5/325 TAB PO ONE (09:51)
[2017-12-02 10:32] VITALS: BP 100/67
== END 2017-12-02 10:31 | disposition home or self-care (01) ==
DX: M75.41 Impingement syndrome of right shoulder (principal)

== ENCOUNTER → 2018-01-20 | Outpatient (CLI) | payer MEDICAID | LOC: FIMAGING 15:31 | PROVIDERS: ATTEND Physician Assistant | DX: S46.811A Strain of other muscles, fascia and tendons at shoulder and upper arm level, right arm, initial encounter (principal); Y93.9 Activity, unspecified ==

== ENCOUNTER 2018-05-02 12:23 | Emergency (ER) | payer MEDICAID ==
[2018-05-02 12:34] VITALS: BP 121/84
--- NOTE | 2018-05-02 13:25 | EDPHY ---
H & P Stated Complaint: R shoulder pain Time Seen by Provider: 05/02/18 13:25 - Personal History LMP (Females 10-55): 22-28 Days Ago Current Tetanus/Diphtheria Vaccine: Yes Current Tetanus Diphtheria and Acellular Pertussis (TDAP): Yes - Medical/Surgical History Hx Asthma: No Hx Chronic Respiratory Disease: No Hx Diabetes: No Hx Cardiac Disease: No Hx Renal Disease: No Hx Cirrhosis: No Hx Alcoholism: No Hx HIV/AIDS: No Hx Splenectomy or Spleen Trauma: No Other PMH: medical- kidney stones, benzo od migraines, chronic pain, pelvic inflammatory disease, sciatica, SI, acute pancreatitis, bursitis - Social History Smoking Status: Never smoked Constitutional: Initial Vital Signs Temperature (C) 36.5 C 05/02/18 12:32 Heart Rate 84 05/02/18 12:32 Respiratory Rate 16 05/02/18 12:32 Blood Pressure 121/84 H 05/02/18 12:32 O2 Sat (%) 97 05/02/18 12:32 O2 Delivery Mode Room Air Allergies/Adverse Reactions: promethazine HCl [From Phenergan] Allergy (Severe, Verified 05/02/18 12:32) tongue swells iodine [Iodine] Allergy (Intermediate, Verified 05/02/18 12:32) Hives Home Medications: Medication Instructions Recorded Ibuprofen [Motrin] 800 mg PO Q8 #20 tab 05/02/18 oxyCODONE IR [Oxycodone Ir (*)] 5 - 10 mg PO Q6 PRN #20 tab 05/02/18 Medical Decision Making ED Course/Re-evaluation: CHIEF COMPLAINT: Right shoulder pain HISTORY OF PRESENT ILLNESS: The patient is a 53 y/o female with a known right rotator cuff tear complaining of acutely worsening right shoulder after being pulled by her dog yesterday. She is followed by an orthopedist for this and has been pursuing PT as the primary treatment. After being pulled by the dog yesterday, her shoulder pain worsened significantly and is now radiating down into her forearm. She tried ice and ibuprofen for this pain without improvement. No weakness, paresthesias, or other acute complaints. REVIEW OF SYSTEMS: A comprehensive 10 system review of systems is otherwise negative aside from elements mentioned in the history of present illness and medical decision making. PHYSICAL EXAM: HR, BP, O2 Sat, RR. Temp noted General Appearance: Alert, well hydrated, appropriate, and non-toxic appearing. Head: Atraumatic without scalp tenderness or obvious injury Eyes: Pupils equal, round, reactive to light and accommodation, EOMI, no trauma , no injection. Nose: Atraumatic, no rhinorrhea, clear. Throat: There is no erythema or exudates, no lesions, normal tonsils, mucus membranes moist. Neck: Supple, nontender, no lymphadenopathy. Respiratory: No retractions, no distress, no wheezes, and no accessory muscle use. Lungs are clear to auscultation bilaterally. Cardiovascular: Regular rate and rhythm, no murmurs, rubs, or gallops. Good capillary refill all extremities. Gastrointestinal: Abdomen is soft, nontender, non-distended, no masses, no rebound, no guarding, no peritoneal signs. Musculoskeletal: Mild right shoulder tenderness. Normal active ROM of all extremities, atraumatic. Neurological: Alert, appropriate, and interactive. The patient has non-focal cranial nerves, motor, sensory, and cerebellar exam. Skin: No rashes, good turgor, no nodules on palpation. Past medical history: kidney stones, benzo overdose, migraines, chronic pain, pelvic inflammatory disease, sciatica, SI, acute pancreatitis, bursitis Past surgical history: noncontributory Family history: noncontributory Social history: Lives in [place]. Single. Unemployed. Orthopedist: Dr. Celis DIFFERENTIAL DIAGNOSIS: The differential diagnosis for the patient's pain included but was not limited to worsening rotator cuff injury, fracture, ligamentous injury, contusion, muscular strain. MEDICAL DECISION MAKING: This is a 53 y/o female with a known right rotator cuff tear who presents with worsening right shoulder pain after being pulled by her dog yesterday. She has mild right shoulder tenderness. She is neurovascularly intact. Suspect worsening of existing rotator cuff injury. Plan for discharge with sling, OxyIR , ibuprofen, and ortho follow up. Recommended seeing orthopedist on Saturday for further evaluation. Return precautions discussed. She is comfortable with this plan. Departure - Departure Disposition: Home, Routine, Self-Care Clinical Impression: Right shoulder pain Qualifiers: Chronicity: acute Qualified Code(s): M25.511 - Pain in right shoulder Condition: Good Instructions: Oxycodone, Rapid Release (By mouth), Shoulder Pain (ED) Additional Instructions: 1. Take ibuprofen as directed for pain over the next few days. 2. Use oxycodone as prescribed when needed for severe pain. This medication can make you drowsy and constipated. Do not use prior to driving. 3. Wear sling for comfort. 4. Follow up with your orthopedist on Saturday. I recommend calling today to schedule this appointment. Referrals: Vera Celis MD [Primary Care Provider] - As per Instructions Prescriptions: Ibuprofen [Motrin] 800 mg PO Q8 #20 tab oxyCODONE IR [Oxycodone Ir (*)] 5 - 10 mg PO Q6 PRN #20 tab PRN Reason: Pain, Severe Report Scribed for: Johnson Chino Report Scribed by: Rama Augustine Date of Report: 05/02/18 Time of Report: 13:46
== END 2018-05-02 13:52 | disposition home or self-care (01) ==
LOC: EEVIPCON 12:23
DX: M25.511 Pain in right shoulder (principal)